=== PATIENT | male | born 1990 | race Native Hawaiian/Other Pacific Islander ===

== ENCOUNTER 2022-07-31 07:37 | Emergency (ER) | payer SELFPAY ==
[~2022-07-31] VITALS: Ht 170.2 cm; Wt 72.6 kg
[2022-07-31 07:43] VITALS: BP 125/67
[2022-07-31] MEDS ORDERED: PRED20 PO (08:01)
[2022-07-31] MEDS ORDERED: BENADRYL25 MG PO (08:01)
== END 2022-07-31 08:46 | disposition home or self-care (01) ==
LOC: ER 07:37
DX: L23.7 Allergic contact dermatitis due to plants, except food (principal); H10.13 Acute atopic conjunctivitis, bilateral
CPT/HCPCS: 99282; A9270; J7512